=== PATIENT | male | born 1970 | race Caucasian/White ===

== ENCOUNTER 2021-05-22 16:19 | Emergency (ER) | payer OTHER ==
[~2021-05-22] VITALS: Ht 170.2 cm; Wt 109.1 kg
[2021-05-22] MEDS ORDERED: CASIRIVIMAB/IMDEVIMAB inject. 10 ML in normal saline 100ml IV soln 100 ML IV ONE (16:55)
[2021-05-22] MEDS ORDERED: acetaminophen 325mg tablet PO ONE (16:55)
[2021-05-22 22:04] VITALS: BP 157/94
== END 2021-05-22 22:06 | disposition home or self-care (01) ==
LOC: ER 16:21
DX: U07.1 COVID-19 (principal); R09.81 Nasal congestion; R05 Cough; R50.9 Fever, unspecified; I10 Essential (primary) hypertension
CPT/HCPCS: 99283; M0243; Q0244